=== PATIENT | female | born 1985 | race Caucasian/White ===

== ENCOUNTER 2018-01-17 22:12 | Emergency (ER) | payer OTHER ==
[2018-01-18] MEDS ORDERED: Acetaminophen TAB* 325 MG PO ONE (00:47)
[2018-01-18] MEDS ORDERED: diPHENhydraMINE PO* 50 MG ONE (01:10)
[2018-01-18] MEDS ORDERED: Ciprofloxacin 0.3% OPTH.SOL* 2.5 ML BTL ONE (01:11)
[2018-01-18] MEDS ORDERED: diPHENhydraMINE PO* 50 MG PO ONE (01:14)
[2018-01-18] MEDS ORDERED: Ibuprofen TAB* 600 MG PO ONE (01:18)
--- NOTE | 2018-01-18 01:20 | ED ---
Throat Pain/Nasal Congestion - HPI Summary HPI Summary: 32 female presents ER with complaints of eye drainage, swelling, itchiness, pain that began this morning. Patient states she was at work when a [facility] doctor prescribed her Polytrim. Patient states ever since she's been taking it the symptoms have gotten worse and believe she may be allergic. Has not tried any other medications. Trouble with vision due to swelling and drainage. Denies fever/chills. No past medical history. States she was around wildflowers and pollen and was wondering if it was an allergic reaction. States it was crusted upon waking this morning. Denies foreign body or anything getting into the eye. - History of Current Complaint Chief Complaint: EDEyeProblem Time Seen by Provider: 01/18/18 00:32 Hx Obtained From: Patient Onset/Duration: Sudden Onset, Lasting Hours Severity: Moderate Cough: None - Allergies/Home Medications Allergies/Adverse Reactions: Allergies Allergy/AdvReac Type Severity Reaction Status Date / Time codeine Allergy Unknown Verified 01/17/18 22:46 Reaction Details PMH/Surg Hx/FS Hx/Imm Hx Endocrine/Hematology History: Denies: Hx Diabetes Cardiovascular History: Denies: Hx Hypertension Respiratory History: Denies: Hx Asthma - Surgical History Surgery Procedure, Year, and Place: N/a - Immunization History Immunizations Up to Date: Yes Infectious Disease History: No Infectious Disease History: Denies: Traveled Outside the [place] in Last 30 Days - Family History Known Family History: Positive: None - Social History Alcohol Use: Rare Substance Use Type: Reports: None Smoking Status (MU): Never Smoked Tobacco Review of Systems Constitutional: Negative Positive: Drainage, Erythema Cardiovascular: Negative Respiratory: Negative Gastrointestinal: Negative Skin: Negative Neurological: Negative All Other Systems Reviewed And Are Negative: Yes Physical Exam Triage Information Reviewed: Yes Vital Signs On Initial Exam: Initial Vitals Temp Pulse Resp BP Pulse Ox 98.3 F 79 16 133/87 99 01/17/18 22:35 01/17/18 22:35 01/17/18 22:35 01/17/18 22:35 01/17/18 22:35 Vital Signs Reviewed: Yes Appearance: Positive: Well-Appearing, No Pain Distress, Well-Nourished Skin: Positive: Warm, Skin Color Reflects Adequate Perfusion, Dry. Negative: Cold, Numb, Cyanosis @, Pale, Erythema @ Head/Face: Positive: Normal Head/Face Inspection Eyes: Positive: EOMI, KEI, Conjunctiva Inflammed - With upper and lower eyelid edema on the right eye, Discharge - Moderate amount of discharge noted with purulent and clear, right eye., Other: - No surrounding cellulitis of the orbits appreciated ENT: Positive: Normal ENT inspection, Hearing grossly normal, Pharynx normal, TMs normal Neck: Positive: Supple, Nontender Respiratory/Lung Sounds: Positive: Clear to Auscultation, Breath Sounds Present. Negative: Rales, Rhonchi, Wheezes Cardiovascular: Positive: Normal, RRR, Pulses are Symmetrical in both Upper and Lower Extremities. Negative: Murmur, Rub Bowel Sounds: Positive: Present Musculoskeletal: Positive: Normal, Strength/ROM Intact Neurological: Positive: Normal, Sensory/Motor Intact, Alert, Oriented to Person Place, Time, CN Intact II-III, Reflexes Intact, NV Bundle Intact Distally, Normal Gait Diagnostics - Vital Signs Vital Signs Temp Pulse Resp BP Pulse Ox 01/18/18 00:56 98.6 F 86 14 143/85 99 01/17/18 23:48 98.4 F 72 17 112/63 100 01/17/18 22:35 98.3 F 79 16 133/87 99 - Laboratory Lab Statement: Any lab studies that have been ordered have been reviewed, and results considered in the medical decision making process. EENT Course/Dx - Course Course Of Treatment: will switch patient's Polytrim to ciprofloxacin applied while in ER. Also given Benadryl I broken/Tylenol. Warm/cool compresses at home. Aware worsening signs or symptoms watch out for. Follow with primary care provider. 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 No history of other any eye issues. No concern for FB therefore no fluroscien stain. - Differential Diagnoses Differential Diagnoses: Cellulitis, Conjunctivitis, Corneal Abrasion - Diagnoses Provider Diagnoses: Conjunctivitis of right eye Discharge - Sign-Out/Discharge Documenting (check all that apply): Discharge/Admit/Transfer - Discharge Plan Condition: Stable Disposition: HOME Patient Education Materials: Conjunctivitis (ED) Referrals: Basilio Olivia MD [Medical Doctor] - Additional Instructions: Continue taking ibuprofen, Benadryl and prescribed Cipro eyedrops as directed. Apply warm/cool compresses. Medication 24 hours taken. Symptoms worsen or don't improve in the next 24 hours please seek medical attention as we discussed. Follow-up with primary care provider for recheck. 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 - Billing Disposition and Condition Condition: STABLE Disposition: Home
[2018-01-18 01:41] VITALS: BP 117/76
[2018-01-18] MEDS ORDERED: Ciprofloxacin 0.3% OPTH.SOL* 2.5 ML BTL BOTH EYES SCH (02:00)
== END 2018-01-18 01:38 | disposition home or self-care (01) ==
LOC: ED 22:12
DX: H10.9 Unspecified conjunctivitis (principal)
CPT/HCPCS: 99282; A9270-GY